=== PATIENT | female | born 1960 | race Caucasian/White ===

== ENCOUNTER 2016-11-21 09:26 | Inpatient (IN) | payer OTHER ==
[~2016-11-21] VITALS: Ht 175.3 cm; Wt 100.5 kg
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
[2016-11-21 09:48] LABS: BASOPHILS 0.1 % (0.0-2.0); EOSINOPHILS 0.6 % (0-7); HEMATOCRIT 38.9 % (36.0-48.0); HEMOGLOBIN 12.9 g/dL (12-16); IMMATURE GRANULOCYTES 1.2 % (0-5); LYMPHOCYTES 22.8 % (15-50); MCH 27.6 pg (26.0-34.0); MCHC 33.2 g/dL (31.0-37.0); MCV 83.3 fL (80.0-100.0); MEAN PLATELET VOLUME 9.4 fL (7.4-10.4); MONOCYTES 5.1 % (2-11); NEUTROPHILS 70.2 % (40-80); PLATELET COUNT 275 10x3/uL (130-400); RBC 4.67 10x6/uL (4.00-5.40); RDW 15.7 % (11.5-14.5); WBC 20.1 10x3/uL (4.8-10.8)
[2016-11-21 10:03] LABS: ALBUMIN 3.6 g/dL (3.4-5.0); ANION GAP 13.1 mmol/L (8-16); BILIRUBIN - TOTAL 0.3 mg/dL (0.2-1.3); CALCIUM 8.5 mg/dL (8.5-10.1); CARBON DIOXIDE 24.1 mmol/L (21.0-32.0); POTASSIUM - SERUM 4.2 mmol/L (3.5-5.1); PROTEIN - SERUM 6.9 g/dL (6.4-8.2)
[2016-11-21 10:05] LABS: APTT 28.4 SECONDS (22.8-39.4); INR 0.92 (0.85-1.17); PROTIME 12.2 SECONDS (11.6-15.0)
[2016-11-21 10:07] LABS: TROPONIN-I 0.036 ng/mL (0.000-0.060)
--- NOTE | 2016-11-21 13:46 | NUR ---
REPORT RECEIVED FROM ZAKI VARGHESE RN
[2016-11-21] MEDS ORDERED: CELEBREX50 MG PO (14:50)
[2016-11-21] MEDS ORDERED: HYDROCODONE-APA1 TAB PO (14:50)
[2016-11-21 15:48] VITALS: BP 136/96
--- NOTE | 2016-11-21 15:53 | NUR ---
RECEIVED TO ROOM.
[2016-11-21] MEDS ORDERED: REQUIP1 MG PO (15:55)
[2016-11-21] MEDS ORDERED: PROZAC10 MG PO (15:56)
[2016-11-21] MEDS ORDERED: DESERYL100 MG PO (16:00)
[2016-11-21 16:08] VITALS: BP 135/90; Ht 175.3 cm; Wt 100.5 kg
--- NOTE | 2016-11-21 16:50 | NUR ---
NO NEEDS VOICED AT THIS TIME.
--- NOTE | 2016-11-21 18:41 | NUR ---
PERCOCET AND PROTONIX PO. ANCEF IVPB. DRSG REINFORCED. NO CHANGES IN INITIAL ASSESSMENT. CALL LIGHT IN REACH. FAMILY IN ROOM. WILL CONTINUE WITH PLAN OF CARE.
[2016-11-21 20:00] VITALS: BP 121/73
--- NOTE | 2016-11-21 20:00 | NUR ---
ASSESSMENT PA FLOWSHEET. SEE ASSESS FLOWSHEET FOR ALL OF PATIENT'S WOUNDS AND DRESSINGS. IV PATENT LEFT AC OF 1/2NS AT 50CC'S/HR SALINE LOCK PATENT TO RT HAND. SITES X2 CALEAR. FAMILY MEMBERS AT BEDSIDE. SR UP X2 CALL LIGHT WITHIN REACH.
--- NOTE | 2016-11-21 21:45 | NUR ---
BACTROBAN APPLIED TO ABRASIONS RT ARM AND REINFORCED WITH JUAN M.
--- NOTE | 2016-11-21 23:45 | NUR ---
RESTING QUIETLY FAMILY MEMBERS AT BEDSIDE.
[2016-11-22] VITALS: BP 123/63
[2016-11-22 00:51] LABS: APPEARANCE CLEAR (CLEAR); BILIRUBIN NEGATIVE (NEGATIVE); COLOR STRAW (YELLOW); GLUCOSE NEGATIVE (NEGATIVE); KETONE NEGATIVE (NEGATIVE); LEUKOCYTE ESTERASE NEGATIVE (NEGATIVE); NITRITE NEGATIVE (NEGATIVE); PROTEIN NEGATIVE (NEGATIVE); SPECIFIC GRAVITY 1.015 (1.005-1.020); UROBILINOGEN NORMAL (NORMAL)
[2016-11-22 01:12] LABS: UDS - AMPHET NEGATIVE QUAL (NEGATIVE); UDS - BARB NEGATIVE QUAL (NEGATIVE); UDS - BENZO POSITIVE QUAL (NEGATIVE); UDS - COCAINE NEGATIVE QUAL (NEGATIVE); UDS - METH NEGATIVE QUAL (NEGATIVE); UDS - OPIATE POSITIVE QUAL (NEGATIVE); UDS - PCP NEGATIVE QUAL (NEGATIVE); UDS - THC NEGATIVE QUAL (NEGATIVE)
--- NOTE | 2016-11-22 02:27 | NUR ---
AWAKE VISITS WITH FAMILY MEMBER
[2016-11-22 04:00] VITALS: BP 113/58
--- NOTE | 2016-11-22 05:48 | NUR ---
PLACED ON BEDPAN. VOIDED PARTIAL LINEN CHANGE DONE. MEDS GIVEN PER NOV. NO CHANGES IN ASSESSMENT.
--- NOTE | 2016-11-22 06:02 | NUR ---
C/O PAIN IN FRACTURE AREAS AND CHEST AREA PERCOCET TAB ONE PO GIVEN FOR PAIN CONTROL.
--- NOTE | 2016-11-22 07:15 | NUR ---
AWAKE ALERT COLOR ADQ SKIN WARM AND DRY AT PRESENT DENIES ANY NEED AT PRESENT .DENIES ANY NEEDS AT PRESENT N/C AT PRESENT FIXATOR CONT TO RT LEG AT PRESENT DSG TO JOCELYNE ARMS AND LEFT LEG AT PRESENT.
[2016-11-22 08:42] LABS: HEMATOCRIT 31.2 % (36.0-48.0); MCH 27.7 pg (26.0-34.0); MCV 83.9 fL (80.0-100.0); MEAN PLATELET VOLUME 9.1 fL (7.4-10.4); RDW 15.4 % (11.5-14.5)
[2016-11-22 08:43] LABS: HEMOGLOBIN 10.3 g/dL (12-16); RBC 3.72 10x6/uL (4.00-5.40); WBC 13.8 10x3/uL (4.8-10.8)
[2016-11-22 08:53] LABS: CALC OSMOLALITY 278 mosm/kg (275-300); CALCIUM 8.1 mg/dL (8.5-10.1); CARBON DIOXIDE 25.6 mmol/L (21.0-32.0); CHLORIDE - SERUM 105 mmol/L (98-107); CREATININE - SERUM 0.8 mg/dL (0.6-1.3); GLUCOSE 149 mg/dL (74-106); SODIUM 139 mmol/L (136-145); eGFR NON AFRICAN AMERICAN 78 mL/min (90-120)
[2016-11-22 08:54] LABS: UREA NITROGEN 8 mg/dL (7-18)
--- NOTE | 2016-11-22 09:00 | NUR ---
MEDS GIVEN ASHLEY WELL AT PRESENT.
[2016-11-22 09:09] VITALS: BP 117/67
--- NOTE | 2016-11-22 11:00 | NUR ---
VOIDING FREELY AT PRESENT PER BEDPAN.
--- NOTE | 2016-11-22 13:00 | NUR ---
VOIDING FREELY AT PRESENT N/C VOICED AT PRESENT LEARNING SUPPORT ASSISTANT IN PLACE AT PRESENT.
[2016-11-22 13:06] VITALS: BP 153/98
--- NOTE | 2016-11-22 15:00 | NUR ---
FAMILY AT PRESENT DENIES ANY NEEDS AT PRESENT.IV CONT TO RT HAND AT PRESENT.
[2016-11-22 16:32] VITALS: BP 126/79
--- NOTE | 2016-11-22 17:00 | NUR ---
FAMILY CONT AT BEDSIDE AT PRESENT DSG CONT AT PRESENT DENIES ANY.
--- NOTE | 2016-11-22 18:30 | NUR ---
STATUS REMAINS UNCHGD AT PRESENT.
[2016-11-22 19:00] VITALS: BP 117/63
--- NOTE | 2016-11-23 00:34 | NUR ---
ASSESSED AT THE BEGINNING OF THE SHIFT. PT IS ALERT AND ORIENTED. HER FAMILY WAS AT THE BEDSIDE DURING THE FIRST OF THE SHIFT. SHE HAS A [employer] FOR PAIN CONTROL WHICH SHE IS USING. O2 IS AT 2 LITERS AND THERE ARE DRESSING TO ALL FOUR EXTREMITIES. THE RIGHT FOREARM WAS DRESSED WITH BACTROBAN AND A SLEEVE. THE OTHER DRESSINGS WERE ALL CLEAN DRY AND INTACT. ALL PULSES WERE CHECKED AND ARE GOOD. THE FAMILY ARE TAKING GOOD CARE OF HER AND EVEN HELPING WITH BEDPANS. THE BED IS LOW, RAILS UP X'S 2 WITH THE CALL LIGHT AT HAND.
[2016-11-23 04:00] VITALS: BP 139/79
[2016-11-23 05:35] LABS: HEMATOCRIT 29.9 % (36.0-48.0); HEMOGLOBIN 9.7 g/dL (12-16); MCH 27.5 pg (26.0-34.0); MCHC 32.4 g/dL (31.0-37.0); MCV 84.7 fL (80.0-100.0); MEAN PLATELET VOLUME 9.7 fL (7.4-10.4); RBC 3.53 10x6/uL (4.00-5.40); WBC 12.1 10x3/uL (4.8-10.8)
[2016-11-23 06:04] LABS: CALC OSMOLALITY 279 mosm/kg (275-300); CALCIUM 8.1 mg/dL (8.5-10.1); CARBON DIOXIDE 29.6 mmol/L (21.0-32.0); CHLORIDE - SERUM 103 mmol/L (98-107); CREATININE - SERUM 0.7 mg/dL (0.6-1.3); POTASSIUM - SERUM 3.8 mmol/L (3.5-5.1); SODIUM 140 mmol/L (136-145); UREA NITROGEN 10 mg/dL (7-18); eGFR NON AFRICAN AMERICAN > 90 mL/min (90-120)
[2016-11-23 06:16] LABS: GLUCOSE 126 mg/dL (74-106)
--- NOTE | 2016-11-23 07:27 | NUR ---
16F GRACIA PLACED USING STERILE TECHNIQUE. ENTIRE CONTENTS OF KIT UTILIZED. IMMEDIATE RETURN OF 300CC CLEAR YELLOW URINE. TOLERATED WITHOUT C/O AT THIS TIME.
--- NOTE | 2016-11-23 08:00 | NUR ---
AWAKE AND ALERT. ORIENTED X3. REPORTS PAIN CONTROLLED WITH USE OF [employer] LONG SHE IS STILL. LUNGS HAVE WHEEZES NOTED TO BILATERAL LOWER LOBES, DENIES COUGH. SKIN IS INTACT WITHOUT REDNESS EXCEPT WOUNDS TO RIGHT ARM, ABRASIONS, AND INCISIONS TO BILATERAL FEET. EXTERNAL FIXATOR IN PLACE TO RIGHT FOOT. IV TO RIGHT HAND PATENT WITHOUT REDNESS AT INSERTION SITE. DENIES NEEDS.
[2016-11-23 08:46] VITALS: BP 146/77
--- NOTE | 2016-11-23 10:00 | NUR ---
REPORTS UP TO SIDE OF BED WITH PT. NOT TO PAINFULL IF THEY LET HER MOVE HERSELF. DENIES NEEDS.
[2016-11-23 11:30] VITALS: BP 105/65
[2016-11-23 16:03] VITALS: BP 117/69
--- NOTE | 2016-11-23 16:38 | NUR ---
Rehab Note- Rehab Prescreen Order received. The patient has [facility] insurance, will require a PreAuth for IRF stay. Awaiting PT eval & will need an OT eval for PreAuth also. Spoke with RAYO Cooper & is ordering a PT & OT eval at this time. Will start PreAuth process. Thank you for this referral! Radha Humphreys RN Clinical Liaison, [facility] Rehab/[facility]
--- NOTE | 2016-11-23 18:09 | NUR ---
FAMILY HERE AT SUPPER TIME. ATE ALL OF MEAL. NO C/O AT THIS TIME. NO CHANGES NOTED. DENIES NEEDS.
[2016-11-23 20:00] VITALS: BP 108/67
[2016-11-24] VITALS: BP 127/71
--- NOTE | 2016-11-24 | NUR ---
PT RESTING QUIETLY, NO S/S OF DISTRESS NOTED, BED IN LOWEST POSITION, CALL LIGHT IN REACH. WILL CONTINUE TO MONITOR.
[2016-11-24 04:00] VITALS: BP 110/68
[2016-11-24 05:46] LABS: HEMATOCRIT 27.6 % (36.0-48.0); HEMOGLOBIN 8.9 g/dL (12-16); MCH 27.3 pg (26.0-34.0); MCHC 32.2 g/dL (31.0-37.0); MCV 84.7 fL (80.0-100.0); MEAN PLATELET VOLUME 9.2 fL (7.4-10.4); RBC 3.26 10x6/uL (4.00-5.40); RDW 15.7 % (11.5-14.5); WBC 8.4 10x3/uL (4.8-10.8)
[2016-11-24 05:58] LABS: CALC OSMOLALITY 284 mosm/kg (275-300); CALCIUM 8.3 mg/dL (8.5-10.1); CARBON DIOXIDE 31.6 mmol/L (21.0-32.0); CHLORIDE - SERUM 106 mmol/L (98-107); CREATININE - SERUM 0.7 mg/dL (0.6-1.3); GLUCOSE 110 mg/dL (74-106); POTASSIUM - SERUM 3.8 mmol/L (3.5-5.1); SODIUM 143 mmol/L (136-145); UREA NITROGEN 9 mg/dL (7-18); eGFR NON AFRICAN AMERICAN > 90 mL/min (90-120)
[2016-11-24 07:50] VITALS: BP 125/73
--- NOTE | 2016-11-24 08:06 | NUR ---
AWAKE AND ALERT. ORIENTED X3. NO C/O AT THIS TIME. REPOSITIONED IN BED FOR COMFORT. LUNGS WITH WHEEZES THROUGHOUT, NO COUGH NOTED. SKIN IS INTACT WITHOUT REDNESS EXCEPT ABRASIONS TO RIGHT ARM, EXTERNAL FIXATOR TO RIGHT LOWER LEG/ANKLE, FRACTURE TO LEFT LEG WITH WALKING SHOE IN PLACE. LEFT ARM SOFT CAST IN PLACE. IV TO RIGHT HAND PATENT WITHOUT REDNESS AT INSERTION SITE. GRACIA PATENT WITH CLEAR YELLOW URINE. DENIES NEEDS.
--- NOTE | 2016-11-24 08:40 | NUR ---
HAD EPISODE OF DRASTICALLY INCREASED PAIN TO RIGHT FOOT. GIVEN 0.4 MG BOLUS AT THIS TIME. WILL MONITOR.
--- NOTE | 2016-11-24 10:00 | NUR ---
SAT UP IN CHAIR AT BEDSIDE PER PT FOR 15 MINUTES. REPORTS GOOD RELIEF WITH BOLUS. DENIES NEEDS.
--- NOTE | 2016-11-24 12:18 | NUR ---
Rehab Note- Notified by Edwin with [facility] to fax clinicals to [phone]. Faxed requested information at this time for Kyree. Spoke with Zohaib with acute hospital therapy & no OT avaliable for OT eval until Sunday. Will fax OT eval when avaliable. Thank you for this referral! Will continue to follow the patient at this time. Radha Humphreys RN Clinical Liaison, [facility] Rehab/[facility]
--- NOTE | 2016-11-24 12:30 | NUR ---
LUNCH SERVED IN ROOM. NO C/O
[2016-11-24 13:01] VITALS: BP 109/61
--- NOTE | 2016-11-24 15:05 | NUR ---
Patient Name: TARA GOFF Admission Status: ER Accout number: [id number] Admission Date: 11-21-2016 : 1960 Admission Diagnosis: Attending: GIRMA Current LOS: 3 Anticipated DC Date: 11-28-2016 Planned Disposition: [facility] Primary Insurance: [facility] Discharge Planning Comments: CM MET WITH PATIENT AND HER FAMILY REGARDING D/C NEEDS AND PLANS. PATIENT STATED SHE LIVES AT HOME ALONE AND WOULD LIKE TO GO THERE AT DISCHARGE. PATIENT HAS 4 STEPS W/RAILS TO ENTER HOME AND NO STAIRS INSIDE. CM EXPLAINED THAT DR. MEJÍA HAD RECOMMENDED RETIREMENT. FACILITY NAMES WERE GIVEN TO PATIENTS DAUGHTER (TARA) AND SHE IS GOING TO CHECK THEM OUT AND LET CM KNOW TODAY (IF POSSIBLE) WHICH FACILTY SHE WOULD LIKE. PATIENT WAS INDEPENDENT OF HER CARE AND HAS NO DME AT HOME. PATIENTS PCP IS DR. JARVIS AND PHARMACY IS [facility] [address]. CM WILL SEND REFERRAL TO SNF WHEN FAMILY DECIDES WHICH ONE THEY WANT. CM WILL CONTINUE TO FOLLOW PATIENT WITH D/C NEEDS AND PLANS. PCP DR. SIMONA [facility] [address]- [phone] TARA BATISTA (DAUGHTER) [phone] Linux Server Administrator: Swathi Tolbert Is the patient Alert and Oriented? Yes 0 * How many steps to enter\exit or inside your home? 4 W/RAILS 0 * PCP DR. JARVIS 0 * Pharmacy [facility] [address] 0 * Preadmission Environment Home Alone 0 * ADLs Independent 0 * Equipment None 0 * List name and contact numbers for known caregivers / representatives who currently or will assist patient after discharge: TARA BATISTA (DAUGHTER) [phone] 0 * Community resources currently utilized None 0 * Additional services required to return to the preadmission environment? Yes 0 * Can the patient safely return to the preadmission environment? Yes 0 * Has this patient been hospitalized within the prior 30 days at any hospital? No 0 Grand Total: 0
[2016-11-24 15:34] VITALS: BP 99/57
--- NOTE | 2016-11-24 16:00 | NUR ---
DRESSING CHANGED PER MING GARCIA. DENIES NEEDS.
--- NOTE | 2016-11-24 18:39 | NUR ---
NO ACUTE DISTRESS NOTED FAMILY AT BEDSIDE. CALL LIGHT IN REACH DENIES PAIN OR DISCOMFORT AT THIS TIME.
[2016-11-24 20:00] VITALS: BP 109/61
--- NOTE | 2016-11-24 21:00 | NUR ---
PT DENIES ANY NEEDS AT THIS TIME. MEDICATION ADMINISTRATION TO FOLLOW.
[2016-11-25] VITALS: BP 133/68
--- NOTE | 2016-11-25 01:35 | NUR ---
RESTING WITH EYES CLOSED, NO ACUTE DISTRESS NOTED, SAFETY PRECAUTIONS IN PLACE, CL IN REACH
--- NOTE | 2016-11-25 03:00 | NUR ---
PT WATCHING TV, RESP EVEN AND UNLABORED, DENIES ANY NEEDS AT THIS TIME, CALL LIGHT IN REACH.
[2016-11-25 04:00] VITALS: BP 109/69
[2016-11-25 08:38] VITALS: BP 109/61
--- NOTE | 2016-11-25 09:00 | NUR ---
PT STATES SHE BELIVES GRACIA LEAKING SHEET DAMP 3CC OF N/S PLACED IN GRACIA AT PRESENT.
--- NOTE | 2016-11-25 10:30 | NUR ---
STOOL AT BEDSIDE WITH ASHLEY WELL GRACIA CATH INTACT .
--- NOTE | 2016-11-25 12:30 | NUR ---
WATCHING TV QUIEYLY AT PRESENT.DENIES ANY NEEDS AT THIS TIME.
[2016-11-25 13:04] VITALS: BP 110/62
--- NOTE | 2016-11-25 13:30 | NUR ---
REPOSITIONED IN BED AT PRESENT DENIES ANY NEEDS AT PRESENT GRACIA CATH INTACT AND DRAINING YELLOW URINE GRACIA CATH CARE DONE.
[2016-11-25 16:43] VITALS: BP 104/57
[2016-11-25 20:00] VITALS: BP 106/67
--- NOTE | 2016-11-25 20:00 | NUR ---
FAMILY AT BEDSIDE, PT DENIES ANY NEEDS OR PAIN AT THIS TIME. CALL LIGHT IN REACH, IV INFUSING. ASSESSMENT PER FLOWSHEET.
[2016-11-26] VITALS: BP 105/62
--- NOTE | 2016-11-26 01:53 | NUR ---
PT RESTING QUIETLY WITH EYES CLOSED. RESP EVEN AN UNLABORED. NO S/S OF DISTRESS NOTED. BED IN LOWEST POSITION, CALL LIGHT IN REACH.
--- NOTE | 2016-11-26 02:24 | NUR ---
RESTING WITH EYES CLOSED, NO DISTRESS NOTED, CL IN REACH
[2016-11-26 04:00] VITALS: BP 122/68
--- NOTE | 2016-11-26 07:15 | NUR ---
SLEEPING QUIETLY AT PRESENT RESP EVEN AND UNLABORED LUNGS SOUNDS JUNKY NEED TO COUGH.02 CONT AT 2L N/C INTERNAL FIXATOR IN PLACE TO RT LOWER LEG AT PRESENT. DSG WITH ISHA TO AND SPLINT TO LEFT LEG AT PRESENT.DSG TO RT ARM IN TACT COVERING OLD ABRASIONS AT PRESENT.DSG AND SPLINT INPLACE TO LEFT ARM ALSO.
--- NOTE | 2016-11-26 07:42 | NUR ---
AWAKE ALERT COLOR ADQ SKIN WARM AND DRY AT PRESENT RESP EVEN AND UNLABORED AT PRESENT.
[2016-11-26 08:35] VITALS: BP 111/64
--- NOTE | 2016-11-26 09:00 | NUR ---
QUIET IN ROOM MEDS GIVEN HUSDAND AT BEDSIDE AT PRESENT.
--- NOTE | 2016-11-26 10:25 | NUR ---
SLEEPING QUIETLY AT PRESENT RESP EVEN AND UNLABORED AT PRESENT DENIES ANY NEEDS AT THIS TIME.
[2016-11-26 11:23] VITALS: BP 120/61
--- NOTE | 2016-11-26 12:00 | NUR ---
AWAKE ALERT COLOR ADQ SKIN WARM AND DRY AT PRESENT.
--- NOTE | 2016-11-26 14:32 | NUR ---
FAMILY AT BEDSIDE QUIET N/C VOICED AT PRESENT.
[2016-11-26 15:50] VITALS: BP 129/67
[2016-11-26 19:00] VITALS: BP 99/53
--- NOTE | 2016-11-26 22:15 | NUR ---
PATIENT RESTING IN BED. NO SIGNS OF DISTRESS NOTED. MEDICATIONS GIVEN AND SHIFT ASSESSMENT COMPLETED. DENIES ANY NEEDS AT THIS TIME. BED LOW. CALL LIGHT IN REACH
[2016-11-27 04:00] VITALS: BP 106/62
--- NOTE | 2016-11-27 04:34 | NUR ---
RESTING WITH EYES CLOSED, SPLINT L WRIST AND L LEG IN PLACE ALONG WITH FIXATOR TO R LEG, FALL PRECAUTIONS IN PLACE, CL IN REACH
--- NOTE | 2016-11-27 07:35 | NUR ---
SITTING IN BED, AWAKE AND ALERT, DENIES NEEDS, CALL LIGHT IN REACH, BED LOWEST POSITION, WILL CONTINUE TO MONITOR
--- NOTE | 2016-11-27 07:49 | NUR ---
PATIENT ALERT IN HIGH PICKENS POSITION. RESPIRATIONS EVEN AND UNLABORED. SIDE RAILS UP X2. BED IN LOW POSITION. CALL LIGHT IN REACH.
[2016-11-27 08:09] VITALS: BP 103/74
[2016-11-27 08:26] LABS: HEMATOCRIT 29.9 % (36.0-48.0); HEMOGLOBIN 9.6 g/dL (12-16); MCH 27.3 pg (26.0-34.0); MCHC 32.1 g/dL (31.0-37.0); MCV 84.9 fL (80.0-100.0); MEAN PLATELET VOLUME 8.7 fL (7.4-10.4); RBC 3.52 10x6/uL (4.00-5.40); RDW 15.3 % (11.5-14.5); WBC 11.4 10x3/uL (4.8-10.8)
[2016-11-27 08:48] LABS: CALC OSMOLALITY 278 mosm/kg (275-300); CALCIUM 8.8 mg/dL (8.5-10.1); CARBON DIOXIDE 32.1 mmol/L (21.0-32.0); CHLORIDE - SERUM 103 mmol/L (98-107); CREATININE - SERUM 0.7 mg/dL (0.6-1.3); GLUCOSE 114 mg/dL (74-106); POTASSIUM - SERUM 4.3 mmol/L (3.5-5.1); SODIUM 139 mmol/L (136-145); UREA NITROGEN 12 mg/dL (7-18); eGFR NON AFRICAN AMERICAN > 90 mL/min (90-120)
--- NOTE | 2016-11-27 09:51 | NUR ---
CM REASSESSMENT NOTE: FAMILY VISITED [facility] SIGNED THE SARI FORM AND REFERRAL WAS SENT
[2016-11-27 11:40] VITALS: BP 119/71
[2016-11-27 15:32] VITALS: BP 112/67
--- NOTE | 2016-11-27 20:15 | NUR ---
ASSESSMENT COMPLETED, C/O PAIN, WILL TREAT WITH ORDERED MEDS, FAMILY IN ROOM, FALL PRECAUTIONS IN PLACE, CL IN REACH
--- NOTE | 2016-11-27 20:35 | NUR ---
PRN DILAUDID GIVEN FOR C/O PAIN 04/12 ALONG WITH ROUTINE MEDS EXCEPT BACTROBAN, PHARMACY CONTACTED FOR MORE, ASHLEY WELL, FAMILY IN ROOM, CL IN REACH
--- NOTE | 2016-11-27 22:46 | NUR ---
BACTROBAN OBTAINED, PRN DILAUDID GIVEN FOR PARTIAL DSG CHANGE, ASHLEY WELL, FALL PRECAUTION IN PLACE, CL IN REACH
[2016-11-28] VITALS: BP 113/69
--- NOTE | 2016-11-28 00:30 | NUR ---
RESTING WITH EYES CLOSED, RESP WITH EASE, NO DISTRESS NOTED, FALL PRECAUTIONS IN PLACE, CL IN REACH
--- NOTE | 2016-11-28 03:15 | NUR ---
RESTING WITH EYES CLOSED, RESP WITH EASE, NO DISTRESS NOTED, CL IN REACH
[2016-11-28 04:00] VITALS: BP 106/60
[2016-11-28 06:33] LABS: HEMATOCRIT 30.4 % (36.0-48.0); HEMOGLOBIN 9.8 g/dL (12-16); MCH 27.6 pg (26.0-34.0); MCHC 32.2 g/dL (31.0-37.0); MCV 85.6 fL (80.0-100.0); MEAN PLATELET VOLUME 9.2 fL (7.4-10.4); RBC 3.55 10x6/uL (4.00-5.40); RDW 15.7 % (11.5-14.5); WBC 11.7 10x3/uL (4.8-10.8)
[2016-11-28 06:48] LABS: CALC OSMOLALITY 278 mosm/kg (275-300); CALCIUM 8.9 mg/dL (8.5-10.1); CARBON DIOXIDE 30.1 mmol/L (21.0-32.0); CHLORIDE - SERUM 102 mmol/L (98-107); CREATININE - SERUM 0.6 mg/dL (0.6-1.3); GLUCOSE 100 mg/dL (74-106); POTASSIUM - SERUM 4.3 mmol/L (3.5-5.1); SODIUM 139 mmol/L (136-145); UREA NITROGEN 15 mg/dL (7-18); eGFR NON AFRICAN AMERICAN > 90 mL/min (90-120)
[2016-11-28 08:12] VITALS: BP 98/56
[2016-11-28] MEDS ORDERED: COLACE100 MG PO (08:41)
[2016-11-28] MEDS ORDERED: NICODERM C1 PATCH .3 TRANSDERM (08:41)
[2016-11-28] MEDS ORDERED: LOVENOX30 MG/0.3 SC (08:41)
[2016-11-28] MEDS ORDERED: DILAUDID4 MG PO (08:43)
--- NOTE | 2016-11-28 11:15 | NUR ---
WOUND CARE CONSULT: S/P ORIF JOCELYNE ORIF ANKLES/PINNING TOES NO CHRONIC WOUNDS / DRESSING CHANGES PER ORTHO PROTOCOLS
[2016-11-28 11:50] VITALS: BP 117/73
--- NOTE | 2016-11-28 14:32 | NUR ---
OT NOTE: PT WAS EATING , HOWEVER, REQUIRED EXT TIME TO COMPLETE AFTER MEAL WAS SET UP. BED MOB WITH MIN ASSIST; SUPINE TO SIT WITH MOD ASSIST
[2016-11-28 15:38] VITALS: BP 104/67
--- NOTE | 2016-11-28 16:34 | NUR ---
Rehab Note- Received denial from [facility] for IRF stay. Spoke with RAYO Echevarria. Thank you for this referral! Radha Humphreys RN Clinical Liaison, [facility] Rehab/[facility]
--- NOTE | 2016-11-28 17:08 | NUR ---
OT NOTE: PT EDUCATED ON SAFE BED MOB TECHNIQUES. PT REQUIRED EXTENSIVE ASSIST WITH BED MOB. THANK YOU, KIKO DAVIS/To
[2016-11-28 20:00] VITALS: BP 114/68
--- NOTE | 2016-11-28 20:00 | NUR ---
ASSESSMENT PER FLOWSHEET. DRESSINGS TO RT AND LEFT ARM C/D/I DRESSING TO RT AND LEFT LEG C/D/I EXTERNAL FIXATOR IN PLACE TO RT LOWER EXTREMITY. ELEVATED ON PILLOW. IV PATENT RT FOREARM OF 1/2NS AT 50CC'S/HR SITE CLEAR.
--- NOTE | 2016-11-28 20:08 | NUR ---
C/O PAIN IN RT LOWER LEG INCISION/FRACTURE. RATES PAIN LEVEL #5. TORADOL 30MG IVP GIVEN FOR PAIN CONTROL.
--- NOTE | 2016-11-28 22:00 | NUR ---
UP TO BSC VOIDED AND HAD A BM ASSISTED BACK TO BED.
--- NOTE | 2016-11-28 22:55 | NUR ---
C/O PAIN IN FX AREAS. RATES PAIN LEVEL #6. DILAUDID 4MG PO GIVEN FOR PAIN CONTROL.
[2016-11-29] VITALS: BP 123/70
--- NOTE | 2016-11-29 | NUR ---
RESTING QUIETLY DENIES NEEDS.
--- NOTE | 2016-11-29 01:49 | NUR ---
C/O PAIN RATES PAIN LEVEL #5. TORADOL GIVEN IVP FOR PAIN CONTROL.
[2016-11-29 04:00] VITALS: BP 122/72
--- NOTE | 2016-11-29 04:01 | NUR ---
EYES CLOSED RESPIRATIONS WITH EASE AND UNLABORED. IV COMPLETED AND CHANGED TO SALINE LOCK.
--- NOTE | 2016-11-29 07:50 | NUR ---
SOME COMPLAINTS OF PAIN, PAIN MEDS GIVEN, JUST PLACED ON BED GAO, DENIES OTHER NEEDS, ASSESSMENT COMPLETE, CALL LIGHT IN REACH, BED LOWEST POSITION, WILL CONTINUE TO MONITOR.
[2016-11-29 08:05] VITALS: BP 121/72
[2016-11-29 12:28] VITALS: BP 117/69
--- NOTE | 2016-11-29 13:34 | NUR ---
NUTRITION MONITORING & EVAL CHART REVIEWED. PT TOLERATING REG DIET. 100% INTAKE RECENT MEALS. +BM RECORDED. WILL CONTINUE TO PROVIDE DIET, HONOR FOOD PREFERENCES. RD FOLLOWING
--- NOTE | 2016-11-29 15:00 | NUR ---
PATIENT IS AWAKE, ALERT AND ORIENTED X'S 4. NO SIGNS OF DISTRESS NOTED. RESPIRATIONS ARE EVEN AND UNLABORED ON ROOM AIR.
[2016-11-29 15:46] VITALS: BP 117/56
--- NOTE | 2016-11-29 19:10 | NUR ---
BEDSIDE REPORT RECEIVED AND CARE OF PT ASSUMED. PT LYING IN SEMI PICKENS'S POSITION WITH EYES CLOSED. O2 IN USE AT 2L VIA NC. IV IN RIGHT FA SALINE LOCKED. ABRASIONS TO RIGHT ARM COVERED WITH FABRIC BANDAGE. SPLINT ON LEFT HAND, RIGHT ANKLE WITH EXTERNAL FIXATOR IN PLACE, RIGHT CALF ABRASION, WRAPPED WITH KERLEX, AND LEFT GREAT TOE PINNED WITH BOOT IN PLACE. WILL MONITOR CLOSELY FOR NEEDS. CALL LIGHT WITHIN REACH.
[2016-11-29 20:00] VITALS: BP 106/58
--- NOTE | 2016-11-29 21:50 | NUR ---
HS MEDICATIONS GIVEN. HS SNACK OF APPLE JUICE AND CHOCOLATE PUDDING GIVEN. WILL CONTINUE TO MONITOR FOR NEEDS. CALL LIGHT WITHIN REACH.
[2016-11-30] VITALS: BP 101/55
--- NOTE | 2016-11-30 01:20 | NUR ---
PT RESTING QUIETLY IN SUPINE POSITION WITH EYES CLOSED AND UNLABORED BREATHING. SIDE RAILS UP X2 FOR SAFETY.
--- NOTE | 2016-11-30 03:15 | NUR ---
PT ASSISTED UP TO USE BSC. BATHED AND APPLIED LOTION. ALL LINENS AND GOWN CHANGED. POSITIONED IN BED FOR COMFORT WITH LOTS OF PILLOWS FOR SUPPORT. CALL LIGHT WITHIN REACH.
[2016-11-30 04:00] VITALS: BP 94/56
--- NOTE | 2016-11-30 06:07 | NUR ---
ALL NEEDS MET DURING SHIFT. PT RESTED WELL OVERNIGHT. CONTINUE PLAN OF CARE.
--- NOTE | 2016-11-30 07:30 | NUR ---
SLEEPING QUIETLY AT PRESENT DENIES ANY NEED AT THIS TIME HOB UP FOR COMFORT LUNGS RALES NOTED AT PRESENT.
[2016-11-30 08:05] VITALS: BP 101/53
--- NOTE | 2016-11-30 09:15 | NUR ---
MEDS GIVEN ASHLEY WELL AT PRESENT.
--- NOTE | 2016-11-30 10:00 | NUR ---
SLEEPING QUIETLY AT PRESENT N/C AT PRESENT.
--- NOTE | 2016-11-30 12:00 | NUR ---
SL PATENT IN RT HAND AT PRESENT DENIES ANY NEEDS AT PRESENT.
[2016-11-30 12:20] VITALS: BP 120/75
[2016-11-30] MEDS ORDERED: BACTRIM DS TABL1 TAB PO (12:56)
--- NOTE | 2016-11-30 14:00 | NUR ---
QUIET IN ROOM AT PRESENT WATCHING TV AT THIS TIME.
--- NOTE | 2016-11-30 15:28 | NUR ---
CM REASSESSMENT NOTE: PATIENT IS DISCHARGING TO [facility] TODAY BY FACILITY VAN TO A SKILLED BED. SPO2% IS 95 ON ROOM AIR PER JUAN MANUEL (RESP).
[2016-11-30 15:37] VITALS: BP 111/64
--- NOTE | 2016-11-30 16:20 | NUR ---
REPORT CALLED TO NURSE GRACIELA NÚÑEZ.
--- NOTE | 2016-11-30 17:34 | NUR ---
OT NOTE: PT REPORTED DOING MUCH BETTER TODAY; BED MOB WITH MOD ASSIST; SUPINE TO SITWITH MOD ASSIST
--- NOTE | 2016-11-30 17:44 | NUR ---
STILL WAITING ON LONG TERM TO COME.
--- NOTE | 2016-11-30 18:33 | NUR ---
LEFT VIA W/C TO NH AT PRESENT.
[2016-12-15] MEDS ORDERED: XANAX0.5 MG PO (14:45)
== END 2016-11-30 18:34 | DRG 493 ==
LOC: D.OPS 09:26 → D.ER 09:26 → EDSTATUS 11:32 → D.MS 15:47 → D.OPS 15:48 → D.MS 11-30 18:34
PROVIDERS: Emergency Medicine; ADMIT Orthopaedic Surgery
PROC: 0LQS0ZZ Repair Right Ankle Tendon, Open Approach (ICD-10-PCS; 2016-11-21)
PROC: 0SS Lower Joints, Reposition (ICD-10-PCS; 2016-11-21)
PROC: 0PSQXZZ Reposition Left Metacarpal, External Approach (ICD-10-PCS; 2016-11-21)
PROC: 0QSG04Z Reposition Right Tibia with Internal Fixation Device, Open Approach (ICD-10-PCS; principal; 2016-11-21 12:00)
PROC: 0QHG05Z Insertion of External Fixation Device into Right Tibia, Open Approach (ICD-10-PCS; 2016-11-21 12:00)
PROC: 0QSJ05Z Reposition Right Fibula with External Fixation Device, Open Approach (ICD-10-PCS; 2016-11-21 12:00)
PROC: 0QSL04Z Reposition Right Tarsal with Internal Fixation Device, Open Approach (ICD-10-PCS; 2016-11-21 12:00)
DX: S82.841C Displaced bimalleolar fracture of right lower leg, initial encounter for open fracture type IIIA, IIIB, or IIIC (principal); S92.11 Fracture of neck of talus; S96.921A Laceration of unspecified muscle and tendon at ankle and foot level, right foot, initial encounter; S85.171A Laceration of posterior tibial artery, right leg, initial encounter; S62.307A Unspecified fracture of fifth metacarpal bone, left hand, initial encounter for closed fracture; S82.832A Other fracture of upper and lower end of left fibula, initial encounter for closed fracture; V49.40XA Driver injured in collision with unspecified motor vehicles in traffic accident, initial encounter; S23.41XA Sprain of ribs, initial encounter; S93.105A Unspecified dislocation of left toe(s), initial encounter; G47.00 Insomnia, unspecified; F17.200 Nicotine dependence, unspecified, uncomplicated; S93.125A Dislocation of metatarsophalangeal joint of left lesser toe(s), initial encounter

== ENCOUNTER 2016-12-18 08:51 | Day surgery (SDC) | payer OTHER ==
[~2016-12-18] VITALS: Ht 175.3 cm; Wt 98.0 kg
[~2016-12-18 08:51] MED LIST: BACTRIM DS TABL1 TAB PO; CELEBREX50 MG PO; COLACE100 MG PO; DESERYL100 MG PO; DILAUDID4 MG PO; HYDROCODONE-APA1 TAB PO; LOVENOX30 MG/0.3 SC; NICODERM C1 PATCH .3 TRANSDERM; PROZAC10 MG PO; REQUIP1 MG PO; XANAX0.5 MG PO
[2016-12-18 10:21] LABS: HEMATOCRIT 36.7 % (36.0-48.0); HEMOGLOBIN 11.5 g/dL (12-16); MCHC 31.3 g/dL (31.0-37.0); MCV 86.2 fL (80.0-100.0); MEAN PLATELET VOLUME 8.8 fL (7.4-10.4); RBC 4.26 10x6/uL (4.00-5.40); RDW 15.6 % (11.5-14.5); WBC 7.3 10x3/uL (4.8-10.8)
[2016-12-18 11:24] VITALS: BP 111/63; Ht 175.3 cm; Wt 98.0 kg
[2016-12-18] MEDS ORDERED: DILAUDID4 MG PO (13:47)
--- NOTE | 2016-12-18 14:54 | NUR ---
PT'S SYSTOLIC bp DROPPED FROM 121 TO 94 WITHIN 5 MIN OF BEING IN PACU. APPROXIMATELY 700ML OF LR GIVEN.
--- NOTE | 2016-12-20 15:22 | OP ---
PATIENT NAME: TARA GOFF MEDICAL RECORD: [id number] :60 LOCATION:D.OPS ADMISSION DATE: SURGEON: RAELY MEJÍA MD DATE OF OPERATION: 12/18/2016 Orthopedic Surgery Operative Note PREOPERATIVE DIAGNOSIS: Prior grade III open ankle fracture of the right ankle with previously placed external fixator. POSTOPERATIVE DIAGNOSIS: Prior grade III open ankle fracture of the right ankle with previously placed external fixator. PROCEDURE: 1. Removal of external fixator. 2. Open reduction internal fixation of lateral malleolus. SURGEON: Arely Mejía MD ANESTHESIA: General. INTRAOPERATIVE COMPLICATIONS: None. SUMMARY OF PATHOLOGIC FINDINGS: The patient's fractures were profound and included the talar neck fracture, open tibia fracture, posterior tibial tendon laceration, posterior tibial tendon artery laceration; however, that was all fixed on the previous operation. Today, we removed the external fixator and plated the fibula as the skin has considerably improved from her day of injury. OPERATIVE SUMMARY IN DETAIL: After obtaining the appropriate preoperative orthopedic surgery consent as well as anesthetic consultation, evaluation and clearance, the patient was brought to the operating room and placed on the operating table in supine position. After general laryngeal mask was administered, tourniquet was placed about the proximal aspect of the right lower extremity. Right lower extremity was then prepped and draped in a routine sterile fashion. The external fixator serial and sequentially removed after Betadine prep. X-ray was brought in for examination evaluation, previous placement of all screws were the same as well as the fragments that were all being held in good continuity. Incision was made along the fibula from the tip of the fibula to above the area of comminution, a long locking plate from [place]. The Rosemarie VariAx system was utilized, a 10-hole fibular plate. Serial and sequential drill and fill technique was used with a combination of both compression and locking screws. At this point, the area was copiously irrigated. AP and lateral views were taken for radiologist review. The incision along the lateral fibula was closed with #1 Vicryl followed by 2-0 Vicryl, followed by skin ross. Sterile dressings were applied. It is of note that the medial skin wound was in fairly good condition. The sutures were left in after sterile bandages were applied to both the incision, the index laceration and the external fixator holes, a well-padded posterior L&U splint was applied. The patient was awakened, taken to the recovery room in stable condition. All final needle and sponge counts were correct. TRANSINT:[id number] Voice Confirmation ID: [id number] DOCUMENT ID: [id number] OPERATIVE REPORT [id number] TARA GOFF MD, ARELY PIKE at 1522 CC: [id number] DICTATION DATE: 12/18/16 1351 DISTRIBUTION ANALYST: 12/19/16 0018 [facility] 12/18/16 [address] [place] [address]
== END 2016-12-18 17:20 | disposition home or self-care (01) ==
LOC: D.OPS 08:51 → D.PAN 13:15 → D.OPS 13:15
PROVIDERS: Anesthesiology
DX: S82.61XA Displaced fracture of lateral malleolus of right fibula, initial encounter for closed fracture (principal)

== ENCOUNTER → 2018-04-26 21:07 | Outpatient (CLI) | payer MEDICAID ==
[2016-12-18 11:24] VITALS: BMI 31.9
== END | disposition home or self-care (01) ==
LOC: D.MRI 13:30 → D.MAMMO 15:30 → D.MRI 21:07
DX: M25.561 Pain in right knee (principal)

== ENCOUNTER → 2018-07-01 18:52 | Outpatient (CLI) | payer MEDICAID ==
[2016-12-18 11:24] VITALS: BMI 31.9
== END | disposition home or self-care (01) ==
LOC: D.MAMMO 05-27 14:00
DX: R92.8 Other abnormal and inconclusive findings on diagnostic imaging of breast (principal)